=== PATIENT | male | born 1970 | race Caucasian/White ===

== ENCOUNTER → 2023-03-18 13:49 | Outpatient (REF) | payer OTHER, SELFPAY ==
--- NOTE | 2023-03-18 13:54 | CA_ITS ---
Transthoracic Echocardiogram Patient (Last, First, Middle): Lino Braun, Gender: Male Date of : 1970 Age: 53 Procedure Date: 03/18/2023 Procedure Type: Transthoracic Echocardiogram Location: OP Height: 177.8 cm Weight: 121.11 kg BSA: 2.36 m2 Heart Rate: 74 bpm BP: 110 / 75 mmHg Business Analysis Specialist: MARÍA Escalante MD: Kate Conner OSTEOPATHIC PHYSICIAN Broadcast Field Supervisor: Dirk Sexton MD Symptoms: CONGESTIVE HEART FAILURE. ICD-10:150.9 Study Quality: Fair/Contrast ECG Rhythm: Sinus Conclusions: - 1. Moderately dilated left ventricle with LVEF of 20-25% with impaired relaxation filling pattern 2. Normal cardiac valvular Doppler 3. Mildly dilated left atrium 4. Mildly dilated ascending aorta at 3.7 cm 5. No gross pericardial effusion Findings Procedure Information Contrast agent, definity, is being given per protocol without apparent complications. Left Ventricle Moderately increased left ventricular cavity size. There is normal left ventricular wall thickness. The left ventricular systolic function is severely decreased. The visually estimated ejection fraction is between 20 25%. There is severe global hypokinesis. Spectral Doppler is indicative of an impaired relaxation filling pattern. E/E prime ratio is between 8 and 15 consistent with indeterminate filling pressures. Right Ventricle The right ventricle was not well visualized. Atria The left atrium is mildly dilated. Interatrial shunt cannot be excluded. The right atrium is likely dilated. Aortic Valve Normal aortic valve structure and function. There is no aortic valve stenosis. There is no aortic valve regurgitation. Mitral Valve Normal mitral valve structure and function. There is trace mitral valve regurgitation. There is no mitral valve stenosis. Pulmonic Valve The pulmonic valve was not well visualized. Tricuspid Valve The tricuspid valve was not well visualized. Tricuspid regurgitation envelope is inadequate for calculation of right ventricular systolic pressure. Great Vessels The pulmonary artery was not well visualized. There is mild dilatation of the ascending aorta measuring 3.70 cm. Venous The inferior vena cava is normal in size and collapses greater than 50% with inspiration. Pericardium/Pleural There is no evidence of pericardial effusion. Prior Study Comparison No prior study available for comparison. Measurements 2D Linear Measurements IVSd: 1.21 0.6-0.9/0.6-1.0 cm LVIDd: 6.48 3.9-5.3/4.2-5.9 cm LVIDd Index: 2.75 2.4-3.2/2.2-3.1 cm/m2 LVIDs: 5.60 2.0-3.6 cm LVPWd: 0.93 0.7-1.1 cm LA Diam: 4.80 2.7-3.8/3.0-4.0 cm LAIDs Index: 2.03 1.5-2.3 cm/m2 LV Mass: 383.14 67-162/88-224 g LV Mass Index: 162.35 43-95/49-115 g/m2 LVOT Diam: 2.60 3.0+(-)1.3 cm 2D Systolic Function EF 4C: 21.70 >55% EF 2C: 21.00 >55% EF BiP: 20.90 >55% Mitral Valve MV Pk E: 0.55 MV PK A: 0.78 MV Decel Time: 234.00 E/A: 0.70 E'Lateral: 3.81 E'Medial: 3.97 E/E' Med: 13.90 E/E' Lat: 14.50 PHT: 69.00 MVA PHT: 3.19 Decel Clarke: 2.36 Aortic Valve AoV Pk José: 1.05 AoV Mn José: 0.82 AoV VTI: 0.23 AoV Pk Grad: 4.00 Aov Mn Grad: 3.00 ELISEO Cont.VTI: 2.76 LVOT LVOT Pk José: 0.64 LVOT Mn José: 0.50 LVOT VTI: 0.12 LVOT Pk Grad: 2.00 LVOT Mn Grad: 1.00 LVOT Diam: 2.60 LVOT Area: 5.31 Diastolic Function MV Pk E: 0.55 MV Pk A: 0.78 E/A: 0.70 E'Medial: 3.97 E/E' Med: 13.90 E' Laterial: 3.81 E/E' Lat: 14.50 Right Ventricle TAPSE (mm): 22.50 TVS' José: 7.78 Great Vessels Aorta Sinus of Valsalva: 3.80 2.0-3.5 cm Ao Asc: 3.70 2.1-3.4 cm Pulmonary Valve PV Pk José: 0.86 Peak PV Grad: 3.00 Updated in Other Vendor System with Status of Final Dirk Sexton MD electronically signed on 03/18/2023 4:42:03 PM with status of Final
== END ==
LOC: HO.CARD 13:49
PROVIDERS: PCP Nurse Practitioner Adult Health; Visit Provider Nurse Practitioner Adult Health
DX: I50.9 Heart failure, unspecified (principal)
CPT/HCPCS: 93306; Q9957